=== PATIENT | male | born 1935 | race Caucasian/White ===

== ENCOUNTER 2016-08-24 12:40 | Inpatient (IN) | payer MEDICARE ==
[2016-08-25 04:37] LABS: URINE BILIRUBIN NEGATIVE (NEGATIVE); URINE BLOOD TRACE (NEGATIVE); URINE GLUCOSE (UA) NORMAL (NORMAL); URINE KETONE NEGATIVE (NEGATIVE); URINE LEUKOCYTE ESTERASE TRACE (NEGATIVE); URINE NITRATE NEGATIVE (NEGATIVE); URINE PROTEIN 1+ (NEGATIVE); UROBILINOGEN NORMAL mg/dL (<1.0)
[2016-08-25 04:55] LABS: URINE RBC 0-5 /[HPF] (0-2); URINE WBC 0-5 /[HPF] (0-3)
[2016-08-25 06:43] LABS: BASO % 0.1 % (0.2-1.2); EOS # 0.1 10_X3_uL (0.0-0.5); EOS % 1.2 % (0.8-7.0); GRAN # 7.4 10_X3_uL (1.8-5.4); GRAN % 78.6 % (34.0-67.9); HEMATOCRIT 32.7 % (40-51); HEMOGLOBIN 10.9 g/dL (13.7-17.5); LYMPH # 1.4 10_X3_uL (1.3-3.6); LYMPH % 14.6 % (21.8-53.1); MEAN CORPUSCULAR HEMOGLOBIN 29.2 pg (27.0-33.0); MEAN CORPUSCULAR HGB CONC 33.3 g/dL (32.0-36.0); MEAN CORPUSCULAR VOLUME 87.7 fL (79-92); MEAN PLATELET VOLUME 9.8 fl (7.5-11.5); MONO # 0.5 10_X3_uL (0.3-0.8); MONO % 5.5 % (5.3-12.2); PLATELET COUNT 222 x10_3/uL (163-337); RED BLOOD COUNT 3.73 x10_6/uL (4.6-6.1); RED CELL DISTRIBUTION WIDTH 16.5 % (11.6-14.4); WHITE BLOOD COUNT 9.4 x10_3/uL (4.2-9.1)
[2016-08-25 06:49] LABS: ALBUMIN 2.6 gm/dL (3.4-5.0); BILIRUBIN,TOTAL 0.29 mg/dL (0.0-1.0); CREATININE 1.5 mg/dL (0.6-1.3); POTASSIUM 3.5 mmol/L (3.5-5.1); TOTAL PROTEIN 5.5 gm/dL (6.4-8.2)
[2016-08-27 07:29] LABS: HEMATOCRIT 35.3 % (40-51); HEMOGLOBIN 11.7 g/dL (13.7-17.5); MEAN CORPUSCULAR HEMOGLOBIN 29.2 pg (27.0-33.0); MEAN CORPUSCULAR HGB CONC 33.1 g/dL (32.0-36.0); RED BLOOD COUNT 4.01 x10_6/uL (4.6-6.1); WHITE BLOOD COUNT 9.2 x10_3/uL (4.2-9.1)
[2016-08-27 07:39] LABS: CALCIUM 8.2 mg/dL (8.7-10.7); CREATININE 1.6 mg/dL (0.6-1.3); POTASSIUM 4.2 mmol/L (3.5-5.1)
[2016-08-30 06:49] LABS: HEMATOCRIT 33.7 % (40-51); MEAN CORPUSCULAR HEMOGLOBIN 28.8 pg (27.0-33.0); MEAN CORPUSCULAR HGB CONC 32.6 g/dL (32.0-36.0); MEAN CORPUSCULAR VOLUME 88.2 fL (79-92); MEAN PLATELET VOLUME 10.1 fl (7.5-11.5); RED BLOOD COUNT 3.82 x10_6/uL (4.6-6.1); RED CELL DISTRIBUTION WIDTH 16.7 % (11.6-14.4); WHITE BLOOD COUNT 7.3 x10_3/uL (4.2-9.1)
[2016-08-30 06:55] LABS: CREATININE 1.8 mg/dL (0.6-1.3); POTASSIUM 4.6 mmol/L (3.5-5.1)
[2016-08-31 11:22] LABS: URINE BILIRUBIN NEGATIVE (NEGATIVE); URINE BLOOD TRACE (NEGATIVE); URINE GLUCOSE (UA) NORMAL (NORMAL); URINE KETONE NEGATIVE (NEGATIVE); URINE LEUKOCYTE ESTERASE TRACE (NEGATIVE); URINE NITRATE NEGATIVE (NEGATIVE); URINE PROTEIN 1+ (NEGATIVE); UROBILINOGEN NORMAL mg/dL (<1.0)
[2016-08-31 11:36] LABS: URINE BACTERIA TRACE (NONE SEEN); URINE RBC 0-5 /[HPF] (0-2); URINE WBC 0-5 /[HPF] (0-3)
== END 2016-08-31 11:10 | disposition home or self-care (01) | DRG 690 ==
LOC: SWING 12:40
PROVIDERS: Family Medicine; ADMIT Family Medicine
DX: N12 Tubulo-interstitial nephritis, not specified as acute or chronic (principal); I13.0 Hypertensive heart and chronic kidney disease with heart failure and stage 1 through stage 4 chronic kidney disease, or unspecified chronic kidney disease; Z79.2 Long term (current) use of antibiotics; N39.0 Urinary tract infection, site not specified; Z16.12 Extended spectrum beta lactamase (ESBL) resistance; N41.9 Inflammatory disease of prostate, unspecified; E11.22 Type 2 diabetes mellitus with diabetic chronic kidney disease; N18.9 Chronic kidney disease, unspecified; I50.9 Heart failure, unspecified; N17.9 Acute kidney failure, unspecified; E03.9 Hypothyroidism, unspecified; M54.9 Dorsalgia, unspecified; Z86.73 Personal history of transient ischemic attack (TIA), and cerebral infarction without residual deficits; R10.9 Unspecified abdominal pain; G40.909 Epilepsy, unspecified, not intractable, without status epilepticus; Z80.9 Family history of malignant neoplasm, unspecified; Z82.49 Family history of ischemic heart disease and other diseases of the circulatory system; Z83.6 Family history of other diseases of the respiratory system; Z79.4 Long term (current) use of insulin; Z79.899 Other long term (current) drug therapy; Z79.891 Long term (current) use of opiate analgesic
CPT/HCPCS: 36415; 80048; 80053; 81001; 82947; 82962; 85025; 97110; 97530

== ENCOUNTER 2016-09-20 14:46 | Observation (INO) | payer MEDICARE, BC | END 2016-09-22 09:06 | disposition other institution (70) | LOC: MS 14:46 | PROVIDERS: ADMIT Family Medicine | DX: N39.0 Urinary tract infection, site not specified (principal); Z16.12 Extended spectrum beta lactamase (ESBL) resistance; E11.22 Type 2 diabetes mellitus with diabetic chronic kidney disease; I12.9 Hypertensive chronic kidney disease with stage 1 through stage 4 chronic kidney disease, or unspecified chronic kidney disease; N18.9 Chronic kidney disease, unspecified; N17.9 Acute kidney failure, unspecified; L89.620 Pressure ulcer of left heel, unstageable; I48.91 Unspecified atrial fibrillation; E03.9 Hypothyroidism, unspecified; N40.0 Benign prostatic hyperplasia without lower urinary tract symptoms; Z79.4 Long term (current) use of insulin; Z79.01 Long term (current) use of anticoagulants; Z79.899 Other long term (current) drug therapy; B99.8 Other infectious disease; Z22.8 Carrier of other infectious diseases | CPT/HCPCS: 36415; 80053; 80061; 80076; 83036; 83735; 84443; 96365; 96366; 96367; 99070; G0378 ==

== ENCOUNTER 2016-09-20 14:46 | Inpatient (IN) | payer MEDICARE, BC ==
[~2016-09-20] VITALS: Ht 175.3 cm; Wt 99.0 kg
[2016-09-20 16:06] LABS: ALBUMIN 3.5 gm/dL (3.4-5.0); BILIRUBIN,TOTAL 0.36 mg/dL (0.0-1.0); CALCIUM 8.3 mg/dL (8.7-10.7); CREATININE 1.7 mg/dL (0.6-1.3); POTASSIUM 4.4 mmol/L (3.5-5.1); TOTAL PROTEIN 6.7 gm/dL (6.4-8.2)
[2016-09-20 18:46] LABS: HEMATOCRIT 39.3 % (40-51); HEMOGLOBIN 12.2 g/dL (13.7-17.5); MEAN CORPUSCULAR HEMOGLOBIN 28.6 pg (27.0-33.0); MEAN CORPUSCULAR VOLUME 92.3 fL (79-92); MEAN PLATELET VOLUME 10.6 fl (7.5-11.5); RED BLOOD COUNT 4.26 x10_6/uL (4.6-6.1); RED CELL DISTRIBUTION WIDTH 16.9 % (11.6-14.4); WHITE BLOOD COUNT 6.2 x10_3/uL (4.2-9.1)
[2016-09-21 07:49] LABS: HEMATOCRIT 40.6 % (40-51); MEAN CORPUSCULAR HEMOGLOBIN 28.8 pg (27.0-33.0); MEAN PLATELET VOLUME 10.5 fl (7.5-11.5); RED BLOOD COUNT 4.51 x10_6/uL (4.6-6.1); RED CELL DISTRIBUTION WIDTH 16.6 % (11.6-14.4); WHITE BLOOD COUNT 6.1 x10_3/uL (4.2-9.1)
[2016-09-21 07:55] LABS: ALBUMIN 3.6 gm/dL (3.4-5.0); ALKALINE PHOSPHATASE 75 U/L (50-136); ALT/SGPT 8 U/L (7.53-40.17); AST/SGOT 13 U/L (6.66-35.34); BILIRUBIN,TOTAL 0.51 mg/dL (0.0-1.0); BLOOD UREA NITROGEN 22 mg/dL (7-18); CALCIUM 8.6 mg/dL (8.7-10.7); CARBON DIOXIDE 25 mmol/L (21-32); CREATININE 1.6 mg/dL (0.6-1.3); GLUCOSE,RANDOM 107 mg/dL (70-99); POTASSIUM 4.1 mmol/L (3.5-5.1); SODIUM 140 mmol/L (136-145); TOTAL PROTEIN 6.9 gm/dL (6.4-8.2)
[2016-09-21 08:12] LABS: BILIRUBIN,DIRECT < 0.20 mg/dL (0.0-0.30)
[2016-09-22 07:37] LABS: HEMATOCRIT 37.7 % (40-51); HEMOGLOBIN 12.1 g/dL (13.7-17.5); MEAN CORPUSCULAR HEMOGLOBIN 28.7 pg (27.0-33.0); MEAN CORPUSCULAR HGB CONC 32.1 g/dL (32.0-36.0); MEAN CORPUSCULAR VOLUME 89.3 fL (79-92); MEAN PLATELET VOLUME 10.8 fl (7.5-11.5); RED BLOOD COUNT 4.22 x10_6/uL (4.6-6.1); RED CELL DISTRIBUTION WIDTH 16.4 % (11.6-14.4); WHITE BLOOD COUNT 6.5 x10_3/uL (4.2-9.1)
[2016-09-22 08:30] LABS: ALBUMIN 3.2 gm/dL (3.4-5.0); BILIRUBIN,TOTAL 0.47 mg/dL (0.0-1.0); CALCIUM 8.7 mg/dL (8.7-10.7); CREATININE 2.1 mg/dL (0.6-1.3); POTASSIUM 4.5 mmol/L (3.5-5.1); TOTAL PROTEIN 6.4 gm/dL (6.4-8.2)
[2016-09-23 07:19] LABS: CALCIUM 8.7 mg/dL (8.7-10.7); CREATININE 2.2 mg/dL (0.6-1.3); POTASSIUM 4.7 mmol/L (3.5-5.1)
[2016-09-24 07:34] LABS: CALCIUM 8.8 mg/dL (8.7-10.7); CREATININE 1.9 mg/dL (0.6-1.3); POTASSIUM 4.5 mmol/L (3.5-5.1)
== END 2016-09-24 17:45 | disposition home or self-care (01) | DRG 690 ==
LOC: MS 14:46
PROVIDERS: ADMIT Family Medicine
DX: N39.0 Urinary tract infection, site not specified (principal); N17.9 Acute kidney failure, unspecified; B96.20 Unspecified Escherichia coli [E. coli] as the cause of diseases classified elsewhere; E11.22 Type 2 diabetes mellitus with diabetic chronic kidney disease; I12.9 Hypertensive chronic kidney disease with stage 1 through stage 4 chronic kidney disease, or unspecified chronic kidney disease; N18.9 Chronic kidney disease, unspecified; L89.620 Pressure ulcer of left heel, unstageable; I48.91 Unspecified atrial fibrillation; E03.9 Hypothyroidism, unspecified; N40.0 Benign prostatic hyperplasia without lower urinary tract symptoms; Z79.4 Long term (current) use of insulin; Z79.01 Long term (current) use of anticoagulants; Z79.899 Other long term (current) drug therapy; B99.8 Other infectious disease; Z22.8 Carrier of other infectious diseases; E11.621 Type 2 diabetes mellitus with foot ulcer
CPT/HCPCS: 36415; 80048; 80053; 80061; 80076; 82962; 83036; 83735; 84443; 99070; J7040

== ENCOUNTER 2016-11-30 12:10 | Inpatient (IN) | payer MEDICARE, BC ==
[~2016-11-30] VITALS: Ht 175.3 cm; Wt 90.0 kg
[2016-11-30 13:07] LABS: BASO % 0.2 % (0.2-1.2); EOS # 0.2 10_X3_uL (0.0-0.5); EOS % 1.6 % (0.8-7.0); GRAN # 7.5 10_X3_uL (1.8-5.4); GRAN % 76.6 % (34.0-67.9); HEMATOCRIT 36.5 % (40-51); HEMOGLOBIN 11.7 g/dL (13.7-17.5); LYMPH # 1.4 10_X3_uL (1.3-3.6); LYMPH % 14.1 % (21.8-53.1); MEAN CORPUSCULAR HEMOGLOBIN 29.3 pg (27.0-33.0); MEAN CORPUSCULAR HGB CONC 32.1 g/dL (32.0-36.0); MEAN CORPUSCULAR VOLUME 91.3 fL (79-92); MEAN PLATELET VOLUME 10.4 fl (7.5-11.5); MONO # 0.7 10_X3_uL (0.3-0.8); MONO % 7.5 % (5.3-12.2); PLATELET COUNT 310 x10_3/uL (163-337); RED CELL DISTRIBUTION WIDTH 16.8 % (11.6-14.4); WHITE BLOOD COUNT 9.8 x10_3/uL (4.2-9.1)
[2016-11-30 13:15] LABS: URINE BILIRUBIN NEGATIVE (NEGATIVE); URINE BLOOD 3+ (NEGATIVE); URINE GLUCOSE (UA) NORMAL (NORMAL); URINE KETONE NEGATIVE (NEGATIVE); URINE LEUKOCYTE ESTERASE 2+ (NEGATIVE); URINE NITRATE NEGATIVE (NEGATIVE); URINE PROTEIN 3+ (NEGATIVE)
[2016-11-30 13:16] LABS: URINE BACTERIA 2+ (NONE SEEN); URINE SQUAMOUS EPITHELIAL CELL 0-10 /[HPF] (NONE SEEN); URINE WBC TNTC WITH CLUMPING /[HPF] (0-3)
[2016-11-30 13:24] LABS: BILIRUBIN,TOTAL 0.57 mg/dL (0.0-1.0); CALCIUM 8.8 mg/dL (8.7-10.7); CREATININE 2.1 mg/dL (0.6-1.3); POTASSIUM 4.7 mmol/L (3.5-5.1)
[2016-11-30 19:53] LABS: CKMB 1.8 ng/ml (0.0-5.0)
[2016-11-30 19:54] LABS: TROP-I < 0.30 NG/ML (0.00-0.30)
[2016-11-30 21:38] LABS: INR 1.5 (1.0-1.1); PARTIAL THROMBOPLASTIN TIME 36.5 SECONDS (21.8-28.4); PROTHROMBIN TIME (PATIENT) 15.7 SECONDS (9.6-10.8)
== END 2016-11-30 22:54 | disposition short-term general hospital (02) | DRG 190 ==
LOC: ER 12:10 → MS 14:12
PROVIDERS: Internal Medicine; ADMIT Family Medicine
DX: J44.0 Chronic obstructive pulmonary disease with (acute) lower respiratory infection (principal); J18.9 Pneumonia, unspecified organism; N39.0 Urinary tract infection, site not specified; I13.0 Hypertensive heart and chronic kidney disease with heart failure and stage 1 through stage 4 chronic kidney disease, or unspecified chronic kidney disease; E11.22 Type 2 diabetes mellitus with diabetic chronic kidney disease; N18.9 Chronic kidney disease, unspecified; R00.1 Bradycardia, unspecified; M25.551 Pain in right hip; R19.7 Diarrhea, unspecified; I48.91 Unspecified atrial fibrillation; S31.103A Unspecified open wound of abdominal wall, right lower quadrant without penetration into peritoneal cavity, initial encounter; X58.XXXA Exposure to other specified factors, initial encounter; Z99.81 Dependence on supplemental oxygen; Z79.02 Long term (current) use of antithrombotics/antiplatelets; Z79.899 Other long term (current) drug therapy; Z88.0 Allergy status to penicillin; Z86.19 Personal history of other infectious and parasitic diseases; Z95.1 Presence of aortocoronary bypass graft
CPT/HCPCS: 36415; 71010; 73502; 73560; 80053; 81001; 82550; 82553; 82962; 83605; 83735; 83880; 85025; 85610; 85730; 87040; 87070; 87086; 87186; 93005; 96365; 99070; 99284; 99285-25

== ENCOUNTER 2016-12-21 13:42 | Inpatient (IN) | payer MEDICARE, BC ==
[~2016-12-21] VITALS: Ht 175.3 cm; Wt 92.0 kg
[2016-12-21 15:01] LABS: BASO % 0.2 % (0.2-1.2); EOS # 0.3 10_X3_uL (0.0-0.5); EOS % 6.2 % (0.8-7.0); GRAN # 3.9 10_X3_uL (1.8-5.4); GRAN % 71.4 % (34.0-67.9); HEMATOCRIT 38.1 % (40-51); HEMOGLOBIN 12.4 g/dL (13.7-17.5); LYMPH # 0.9 10_X3_uL (1.3-3.6); LYMPH % 15.6 % (21.8-53.1); MEAN CORPUSCULAR HEMOGLOBIN 29.5 pg (27.0-33.0); MEAN CORPUSCULAR HGB CONC 32.5 g/dL (32.0-36.0); MEAN CORPUSCULAR VOLUME 90.5 fL (79-92); MEAN PLATELET VOLUME 10.3 fl (7.5-11.5); MONO # 0.4 10_X3_uL (0.3-0.8); MONO % 6.6 % (5.3-12.2); PLATELET COUNT 214 x10_3/uL (163-337); RED BLOOD COUNT 4.21 x10_6/uL (4.6-6.1); RED CELL DISTRIBUTION WIDTH 17.5 % (11.6-14.4); WHITE BLOOD COUNT 5.5 x10_3/uL (4.2-9.1)
[2016-12-21 15:09] LABS: CALCIUM 8.1 mg/dL (8.7-10.7); CREATININE 1.7 mg/dL (0.6-1.3); POTASSIUM 4.5 mmol/L (3.5-5.1)
[2016-12-21 18:16] LABS: ALKALINE PHOSPHATASE 65 U/L (50-136); ALT/SGPT 8 U/L (7.53-40.17); AST/SGOT 22 U/L (6.66-35.34); BILIRUBIN,TOTAL 0.53 mg/dL (0.0-1.0); TOTAL PROTEIN 5.5 gm/dL (6.4-8.2)
[2016-12-21 19:05] LABS: BILIRUBIN,DIRECT < 0.20 mg/dL (0.0-0.30)
[2016-12-23 07:11] LABS: CALCIUM 8.2 mg/dL (8.7-10.7); CREATININE 1.6 mg/dL (0.6-1.3); HEMATOCRIT 36.2 % (40-51); HEMOGLOBIN 11.4 g/dL (13.7-17.5); MEAN CORPUSCULAR HEMOGLOBIN 28.8 pg (27.0-33.0); MEAN CORPUSCULAR HGB CONC 31.5 g/dL (32.0-36.0); MEAN CORPUSCULAR VOLUME 91.6 fL (79-92); PLATELET COUNT 202 x10_3/uL (163-337); POTASSIUM 4.2 mmol/L (3.5-5.1); RED BLOOD COUNT 3.95 x10_6/uL (4.6-6.1); WHITE BLOOD COUNT 4.9 x10_3/uL (4.2-9.1)
[2016-12-24 07:28] LABS: HEMATOCRIT 35.6 % (40-51); HEMOGLOBIN 11.4 g/dl (13.7-17.5); MEAN CORPUSCULAR HEMOGLOBIN 29.3 pg (27.0-33.0); MEAN CORPUSCULAR VOLUME 91.5 fl (79-92); RED BLOOD COUNT 3.89 x10_6/ul (4.6-6.1); RED CELL DISTRIBUTION WIDTH 17.7 % (11.6-14.4); WHITE BLOOD COUNT 4.6 x10_3/ml (4.2-9.1)
[2016-12-24 07:31] LABS: CALCIUM 8.4 mg/dL (8.7-10.7); CREATININE 1.5 mg/dL (0.6-1.3); POTASSIUM 4.3 mmol/L (3.5-5.1)
[2016-12-25 07:02] LABS: BASO % 0.2 % (0.2-1.2); EOS # 0.2 10_X3_uL (0.0-0.5); EOS % 3.3 % (0.8-7.0); GRAN # 3.3 10_X3_uL (1.8-5.4); GRAN % 66.9 % (34.0-67.9); HEMATOCRIT 33.5 % (40-51); LYMPH % 20.4 % (21.8-53.1); MEAN CORPUSCULAR HGB CONC 32.8 g/dL (32.0-36.0); MEAN CORPUSCULAR VOLUME 91.3 fL (79-92); MEAN PLATELET VOLUME 10.6 fl (7.5-11.5); MONO # 0.5 10_X3_uL (0.3-0.8); MONO % 9.2 % (5.3-12.2); PLATELET COUNT 191 x10_3/uL (163-337); RED BLOOD COUNT 3.67 x10_6/uL (4.6-6.1); RED CELL DISTRIBUTION WIDTH 16.8 % (11.6-14.4); WHITE BLOOD COUNT 4.9 x10_3/uL (4.2-9.1)
[2016-12-25 07:14] LABS: ALBUMIN 2.7 gm/dL (3.4-5.0); BILIRUBIN,TOTAL 0.63 mg/dL (0.0-1.0); CALCIUM 8.2 mg/dL (8.7-10.7); CREATININE 1.7 mg/dL (0.6-1.3); POTASSIUM 4.6 mmol/L (3.5-5.1); TOTAL PROTEIN 5.4 gm/dL (6.4-8.2)
[2016-12-26 07:11] LABS: HEMATOCRIT 34.9 % (40-51); HEMOGLOBIN 11.2 g/dL (13.7-17.5); MEAN CORPUSCULAR HEMOGLOBIN 29.5 pg (27.0-33.0); MEAN CORPUSCULAR HGB CONC 32.1 g/dL (32.0-36.0); MEAN CORPUSCULAR VOLUME 91.8 fL (79-92); RED BLOOD COUNT 3.8 x10_6/uL (4.6-6.1); RED CELL DISTRIBUTION WIDTH 16.8 % (11.6-14.4); WHITE BLOOD COUNT 4.9 x10_3/uL (4.2-9.1)
[2016-12-26 07:34] LABS: CALCIUM 8.3 mg/dL (8.7-10.7); CREATININE 1.5 mg/dL (0.6-1.3); POTASSIUM 4.5 mmol/L (3.5-5.1)
== END 2016-12-26 11:04 | disposition swing bed (61) | DRG 594 ==
LOC: ER 13:42 → MS 16:12
PROVIDERS: Emergency Medicine; ADMIT Family Medicine
DX: L98.499 Non-pressure chronic ulcer of skin of other sites with unspecified severity (principal); B96.20 Unspecified Escherichia coli [E. coli] as the cause of diseases classified elsewhere; Z16.12 Extended spectrum beta lactamase (ESBL) resistance; R00.1 Bradycardia, unspecified; I16.0 Hypertensive urgency; E11.22 Type 2 diabetes mellitus with diabetic chronic kidney disease; I12.9 Hypertensive chronic kidney disease with stage 1 through stage 4 chronic kidney disease, or unspecified chronic kidney disease; N18.3 Chronic kidney disease, stage 3 (moderate); E86.0 Dehydration; D64.9 Anemia, unspecified; Z95.1 Presence of aortocoronary bypass graft; M54.9 Dorsalgia, unspecified; E78.5 Hyperlipidemia, unspecified; I48.91 Unspecified atrial fibrillation; E03.9 Hypothyroidism, unspecified; F03.90 Unspecified dementia, unspecified severity, without behavioral disturbance, psychotic disturbance, mood disturbance, and anxiety; Z79.891 Long term (current) use of opiate analgesic; Z79.02 Long term (current) use of antithrombotics/antiplatelets; Z79.899 Other long term (current) drug therapy; Z80.9 Family history of malignant neoplasm, unspecified
CPT/HCPCS: 36415; 80048; 80053; 80061; 80076; 82962; 83036; 85025; 87040; 87070; 87186; 93005; 96365; 99070; 99284; 99284-25; J7040

== ENCOUNTER 2016-12-21 13:42 | Observation (INO) | payer MEDICARE, BC | END 2016-12-23 10:30 | disposition other institution (70) | LOC: ER 13:42 → MS 16:12 → ER 12-23 10:30 | PROVIDERS: ADMIT Family Medicine | DX: L98.499 Non-pressure chronic ulcer of skin of other sites with unspecified severity (principal); B96.20 Unspecified Escherichia coli [E. coli] as the cause of diseases classified elsewhere; Z16.12 Extended spectrum beta lactamase (ESBL) resistance; R00.1 Bradycardia, unspecified; I16.0 Hypertensive urgency; E11.22 Type 2 diabetes mellitus with diabetic chronic kidney disease; I12.9 Hypertensive chronic kidney disease with stage 1 through stage 4 chronic kidney disease, or unspecified chronic kidney disease; N18.3 Chronic kidney disease, stage 3 (moderate); E86.0 Dehydration; D64.9 Anemia, unspecified; Z95.1 Presence of aortocoronary bypass graft; M54.9 Dorsalgia, unspecified; E78.5 Hyperlipidemia, unspecified; I48.91 Unspecified atrial fibrillation; E03.9 Hypothyroidism, unspecified; F03.90 Unspecified dementia, unspecified severity, without behavioral disturbance, psychotic disturbance, mood disturbance, and anxiety; Z79.891 Long term (current) use of opiate analgesic; Z79.02 Long term (current) use of antithrombotics/antiplatelets; Z79.899 Other long term (current) drug therapy; Z80.9 Family history of malignant neoplasm, unspecified | CPT/HCPCS: 36415; 80048; 80061; 80076; 82962; 83036; 85025; 87040; 87070; 93005; 96365; 96366; 96367; 99070; 99284; 99284-25; G0378 ==